=== PATIENT | male | born 1980 | race Caucasian/White ===

== ENCOUNTER 2016-12-08 21:41 | Emergency (ER) | payer MEDICARE | END 2016-12-08 22:25 | disposition home or self-care (01) | LOC: ER 21:41 | DX: J32.9 Chronic sinusitis, unspecified (principal); R05 Cough; I10 Essential (primary) hypertension; F17.210 Nicotine dependence, cigarettes, uncomplicated | CPT/HCPCS: 99282; 99283 ==